=== PATIENT | female | born 1985 | race African-American/Black ===

== ENCOUNTER 2016-11-09 11:30 | Inpatient (IN) | payer MEDICAID ==
[~2016-11-09] VITALS: Ht 33 cm; Wt 0.5 kg
[2016-11-09] VITALS (14 sets, daily range): BP systolic 100–142; BP diastolic 60–82
[2016-11-09] MEDS ORDERED: LACTATED RINGER'S 2,000 ML IV ONE (12:00)
[2016-11-09 12:46] LABS: Albumin 2.6 g/dL (3.4-5.0); BUN/Creatinine Ratio 14.6; Bilirubin, Total 0.2 mg/dL (0.2-1.0); Calcium 8.3 mg/dL (8.5-10.1); Potassium 3.7 mmol/L (3.5-5.1); Total Protein 7.1 g/dL (6.4-8.2); Uric Acid 3.8 mg/dL (2.6-6.0)
[2016-11-09 12:50] LABS: Basophils # (auto) 0 uL; Basophils % (auto) 0.3 % (0.0-2.0); Eosinophils # (auto) 0.4 uL; Hematocrit 35.2 % (36.0-46.0); Hemoglobin 11.5 g/dL (12.2-16.2); Lymphocytes # (auto) 1.5 uL; Lymphocytes % (auto) 16.3 % (10.0-50.0); Mean Corpuscular Hemoglobin 28.9 pg (28.0-32.0); Mean Corpuscular Hgb Conc. 32.8 g/dL (32.0-36.0); Mean Corpuscular Volume 88.1 fL (80.0-100.0); Mean Platelet Volume 9.6 fL (7.4-10.4); Monocytes # (auto) 0.5 uL; Monocytes % (auto) 5.2 % (0.0-12.0); Neutrophils # (auto) 6.7 uL; Neutrophils % (auto) 74.2 % (37.0-80.0); Platelet Count (auto) 212 10^3/uL (140-450); Red Cell Distribution Width 14.4 % (11.6-16.0); White Blood Cell 9.1 10^3/uL (4.4-10.8)
[2016-11-09 12:55] LABS: INR 0.96 (0.9-1.15); Partial Thromboplastin Time 26.6 sec (22.64-33.71); Prothrombin Time 9.9 sec (9.37-12.3)
[2016-11-09 12:57] LABS: Urine Bilirubin Negative (Negative); Urine Color Yellow (Yellow); Urine Ketone Negative (Negative); Urine Nitrite Negative (Negative); Urine RBC 2 /hpf (0 - 4); Urine Squamous Epithelial Cell MANY /hpf (<5); Urine Urobilinogen Normal (Negative); Urine pH 6.5 (5.0-8.0)
[2016-11-09 12:58] LABS: Urine Blood 1+ /uL (Negative); Urine Glucose 2+ mg/dL (Normal)
[2016-11-09] MEDS ORDERED: fentaNYL CITRATE 100 MCG/2 ML VL ONE (13:08)
[2016-11-09] MEDS ORDERED: MORPHINE SULF INJ 2 MG/ML SYRINGE 1ML IV PRN (14:15)
[2016-11-09] MEDS ORDERED: ONDANSETRON HCL 4 MG/2 ML VIAL IV PRN (14:15)
[2016-11-09] MEDS ORDERED: hydrALAZINE HCL 20 MG/ML VL IV PRN (14:30)
[2016-11-09] MEDS ORDERED: ePHEDrine SULFATE 50 MG/ML AMP IV PRN (14:30)
[2016-11-09] MEDS ORDERED: HYDROmorphone HCL 2 MG/ML VL IV PRN ×2 (14:30→14:45)
[2016-11-09] MEDS ORDERED: ONDANSETRON HCL 4 MG/2 ML VIAL IV ONE (14:30)
[2016-11-09] MEDS ORDERED: LACT. RINGERS/OXYTOCIN 20UNITS 1,000 ML IV SCH (14:45)
[2016-11-09] MEDS ORDERED: OXYTOCIN 10UNIT/ML 1ML VIAL ONE (15:05)
[2016-11-09] MEDS: D5W/LACTATED RINGERS 1,000 ML IV SCH ×2 (16:45→22:30)
[2016-11-09] MEDS: KETOROLAC TROMETH 30 MG/ML 1ML VIAL IV PRN (18:47)
[2016-11-09 21:14] LABS: Basophils # (auto) 0.1 uL; Basophils % (auto) 0.5 % (0.0-2.0); Eosinophils # (auto) 0.2 uL; Eosinophils % (auto) 1.8 % (0.0-7.0); Hematocrit 35.8 % (36.0-46.0); Hemoglobin 11.7 g/dL (12.2-16.2); Lymphocytes # (auto) 1.7 uL; Lymphocytes % (auto) 14.2 % (10.0-50.0); Mean Corpuscular Hemoglobin 28.8 pg (28.0-32.0); Mean Corpuscular Hgb Conc. 32.7 g/dL (32.0-36.0); Mean Corpuscular Volume 88.2 fL (80.0-100.0); Monocytes # (auto) 0.5 uL; Monocytes % (auto) 4.2 % (0.0-12.0); Neutrophils # (auto) 9.3 uL; Neutrophils % (auto) 79.3 % (37.0-80.0); Platelet Count (auto) 218 10^3/uL (140-450); Red Cell Distribution Width 14.3 % (11.6-16.0); White Blood Cell 11.7 10^3/uL (4.4-10.8)
[2016-11-09] MEDS: ceFAZolin 1GM/50ML D5W 50 ML IV SCH (22:30)
[2016-11-10] VITALS (11 sets, daily range): BP systolic 103–138; BP diastolic 53–87
[2016-11-10] MEDS: ceFAZolin 1GM/50ML D5W 50 ML IV SCH ×2 (05:50→14:30)
[2016-11-10] MEDS: KETOROLAC TROMETH 30 MG/ML 1ML VIAL IV PRN (05:50)
[2016-11-10] MEDS: D5W/LACTATED RINGERS 1,000 ML IV SCH (05:50)
[2016-11-10 06:28] LABS: DEFINITIVE VIEW TRANSMISSION; Hematocrit 33.1 % (36.0-46.0); SUSPECT VIEW TRANSMISSION
[2016-11-10 06:50] LABS: Hemoglobin 11.4 g/dL (12.2-16.2); Mean Corpuscular Hemoglobin 30.4 pg (28.0-32.0); Mean Corpuscular Hgb Conc. 34.3 g/dL (32.0-36.0); Mean Corpuscular Volume 88.7 fL (80.0-100.0); Mean Platelet Volume 8.9 fL (7.4-10.4); Platelet Count (auto) 196 10^3/uL (140-450); Red Cell Distribution Width 13.5 % (11.6-16.0); White Blood Cell 11.6 10^3/uL (4.4-10.8)
[2016-11-10] MEDS ORDERED: BISACODYL 10 MG RECT SUPP PR PRN (07:00)
[2016-11-10 07:26] LABS: Metamyelocytes % 0; Myelocytes % 0; Promyelocytes % 0; Reactive Lymphocytes 0
[2016-11-10] MEDS: SIMETHICONE 80 MG CHEWABLE TABLET PO SCH ×4 (07:31→21:36)
[2016-11-10 09:01] LABS: Platelet Estimate Adequate; RBC Morphology Normal
[2016-11-10] MEDS: DOCUSATE SOD 100 MG CAP PO SCH ×2 (10:19→21:36)
[2016-11-10] MEDS: DOCUSATE CALCIUM 240 MG CAP PO SCH (10:19)
[2016-11-10] MEDS: IBUPROFEN 800 MG TAB PO PRN ×2 (10:25→21:36)
[2016-11-10] MEDS: HYDROcodone-ACET 10/325MG TAB PO PRN (11:27)
[2016-11-10] MEDS ORDERED: PREN-96 PO (17:30)
[2016-11-11 03:06] VITALS: BP 117/71
[2016-11-11] MEDS: IBUPROFEN 800 MG TAB PO PRN ×2 (06:03→21:59)
[2016-11-11] MEDS: SIMETHICONE 80 MG CHEWABLE TABLET PO SCH ×4 (06:20→21:59)
[2016-11-11 08:00] VITALS: BP 124/72
[2016-11-11] MEDS: DOCUSATE SOD 100 MG CAP PO SCH ×2 (10:06→21:59)
[2016-11-11] MEDS: DOCUSATE CALCIUM 240 MG CAP PO SCH (10:06)
[2016-11-11 12:00] VITALS: BP 112/70
[2016-11-11] MEDS: HYDROcodone-ACET 10/325MG TAB PO PRN (15:25)
[2016-11-11 16:00] VITALS: BP 110/63
[2016-11-11 20:10] VITALS: BP 114/60
[2016-11-11 23:30] VITALS: BP 104/56
[2016-11-12 03:20] VITALS: BP 124/63
[2016-11-12] MEDS: SIMETHICONE 80 MG CHEWABLE TABLET PO SCH (06:39)
[2016-11-12] MEDS ORDERED: MIDAZOLAM HCL 1MG/1ML-2 ML VIAL ONE (07:37)
[2016-11-12] MEDS ORDERED: fentaNYL CITRATE 100 MCG/2 ML VL ONE (07:37)
[2016-11-12] MEDS ORDERED: ceFAZolin 1GM VL ONE (07:37)
[2016-11-12] MEDS ORDERED: OXYTOCIN 10 UNIT/ML 10ML VIAL ONE (07:44)
[2016-11-12 08:00] VITALS: BP 110/62
[2016-11-12] MEDS: IBUPROFEN 800 MG TAB PO PRN (08:36)
[2016-11-12] MEDS ORDERED: TETANUS-DIPTH-ACEL PERTUSSIS 0.5ML SYRG IM ONE (08:45)
[2016-11-12 09:10] VITALS: BP 114/63
== END 2016-11-12 09:10 | disposition home or self-care (01) | DRG 540 ==
LOC: OBSVTOIN 11:30 → LDRP 11:30
PROVIDERS: ADMIT Obstetrics & Gynecology; ATTEND Obstetrics & Gynecology
PROC: 10D00Z1 Extraction of Products of Conception, Low, Open Approach (ICD-10-PCS; principal; 2016-11-09 13:22)
DX: O34.211 Maternal care for low transverse scar from previous cesarean delivery (principal); O99.324 Drug use complicating childbirth; O99.52 Diseases of the respiratory system complicating childbirth; J45.909 Unspecified asthma, uncomplicated; F12.90 Cannabis use, unspecified, uncomplicated; O77.0 Labor and delivery complicated by meconium in amniotic fluid; O69.81X0 Labor and delivery complicated by cord around neck, without compression, not applicable or unspecified; Z86.32 Personal history of gestational diabetes; Z82.49 Family history of ischemic heart disease and other diseases of the circulatory system; Z37.0 Single live birth; Z91.19 Patient's noncompliance with other medical treatment and regimen; O09.33 Supervision of pregnancy with insufficient antenatal care, third trimester; Z23 Encounter for immunization
CPT/HCPCS: 36415; 76818; 80053; 81001; 82948; 84550; 85007; 85025; 85027; 85610; 85730; 86850; 86900; 86901; 88307; 90715; 96372; 96374; G0378; G0434; J0690; J1885; J2250; J2590

== ENCOUNTER 2016-12-05 12:46 | Inpatient (IN) | payer MEDICAID ==
[~2016-12-05] VITALS: Ht 152.4 cm; Wt 90.0 kg
[~2016-12-05 12:46] MED LIST: PREN-96 PO
[2016-12-05] MEDS ORDERED: SODIUM CHLORIDE 0.9% 1,000 ML IVB ONE (13:28)
[2016-12-05 13:30] LABS: Basophils # (auto) 0 uL; Basophils % (auto) 0.5 % (0.0-2.0); Eosinophils # (auto) 0.7 uL; Eosinophils % (auto) 6.3 % (0.0-7.0); Hematocrit 39.8 % (36.0-46.0); Hemoglobin 12.6 g/dL (12.2-16.2); Lymphocytes # (auto) 2.3 uL; Lymphocytes % (auto) 21.6 % (10.0-50.0); Mean Corpuscular Hemoglobin 27.8 pg (28.0-32.0); Mean Corpuscular Hgb Conc. 31.8 g/dL (32.0-36.0); Mean Corpuscular Volume 87.3 fL (80.0-100.0); Monocytes # (auto) 0.5 uL; Monocytes % (auto) 4.5 % (0.0-12.0); Neutrophils # (auto) 7.2 uL; Neutrophils % (auto) 67.1 % (37.0-80.0); Platelet Count (auto) 320 10^3/uL (140-450); Red Cell Distribution Width 14.9 % (11.6-16.0); White Blood Cell 10.7 10^3/uL (4.4-10.8)
[2016-12-05] MEDS ORDERED: ONDANSETRON HCL 4 MG/2 ML VIAL IV ONE (13:30)
[2016-12-05 13:57] LABS: Albumin 3.6 g/dL (3.4-5.0); BUN/Creatinine Ratio 13.3; Bilirubin, Total 0.3 mg/dL (0.2-1.0); Calcium 8.4 mg/dL (8.5-10.1); Potassium 3.9 mmol/L (3.5-5.1); Total Protein 7.8 g/dL (6.4-8.2)
[2016-12-05 15:04] LABS: INR 1.01 (0.9-1.15); Partial Thromboplastin Time 26.8 sec (22.64-33.71); Prothrombin Time 10.4 sec (9.37-12.3)
[2016-12-05 15:19] LABS: Urine Bilirubin Negative (Negative); Urine Color Yellow (Yellow); Urine Glucose Normal (Normal); Urine Ketone Negative (Negative); Urine Nitrite Negative (Negative); Urine RBC 3 /hpf (0 - 4); Urine Squamous Epithelial Cell FEW /hpf (<5); Urine Urobilinogen Normal (Negative)
[2016-12-05 15:23] LABS: Urine Blood 1+ /uL (Negative)
[2016-12-05] MEDS ORDERED: LEVOFLOXACIN 500MG 100 ML IV ONE (15:30)
[2016-12-05] MEDS ORDERED: metroNIDAZOLE 500MG/100ML 100 ML IV ONE (15:30)
[2016-12-05] MEDS ORDERED: PIPERACILLIN-TAZOB 3.375GM 100 ML IV ONE (15:45)
[2016-12-05] MEDS ORDERED: PROMETHAZINE HCL 25 MG/ML 1ML IV PRN (16:00)
[2016-12-05] MEDS ORDERED: NITROGLYCERIN 0.4 MG SL TAB SL PRN (16:00)
[2016-12-05] MEDS ORDERED: MORPHINE SULF INJ 2 MG/ML SYRINGE 1ML IV PRN ×2 (16:00)
[2016-12-05] MEDS ORDERED: LORazepam 0.5 MG TAB PO PRN (16:00)
[2016-12-05] MEDS ORDERED: ACETAMINOPHEN 500 MG TAB PO PRN (16:00)
[2016-12-05] MEDS ORDERED: HYDROcodone-ACET 5/325MG TAB PO PRN (16:00)
[2016-12-05] MEDS ORDERED: TEMAZEPAM 15 MG CAP PO PRN (16:00)
[2016-12-05] MEDS: SODIUM CHLORIDE 0.9% 1,000 ML IV SCH ×2 (16:16→17:16)
[2016-12-05 16:47] LABS: Amylase 29 U/L (25-115)
[2016-12-05] MEDS: FAMOTIDINE 20 MG TAB PO SCH ×2 (17:28→21:52)
[2016-12-05] MEDS: metroNIDAZOLE 500MG/100ML 100 ML IV SCH ×2 (18:15→23:04)
[2016-12-05 21:30] VITALS: BP 111/73
[2016-12-05] MEDS: PIPERACILLIN-TAZOB 3.375GM 100 ML IV SCH (23:53)
[2016-12-06] MEDS: SODIUM CHLORIDE 0.9% 1,000 ML IV SCH ×2 (01:46→11:28)
[2016-12-06 05:00] VITALS: BP 107/62
[2016-12-06] MEDS: metroNIDAZOLE 500MG/100ML 100 ML IV SCH ×2 (05:07→11:55)
[2016-12-06] MEDS: PIPERACILLIN-TAZOB 3.375GM 100 ML IV SCH ×2 (06:18→12:00)
[2016-12-06 06:35] LABS: Basophils # (auto) 0 uL; Basophils % (auto) 0.3 % (0.0-2.0); Eosinophils # (auto) 0.6 uL; Eosinophils % (auto) 7.5 % (0.0-7.0); Hemoglobin 10.9 g/dL (12.2-16.2); Lymphocytes # (auto) 2.3 uL; Lymphocytes % (auto) 29.6 % (10.0-50.0); Mean Corpuscular Hemoglobin 28.1 pg (28.0-32.0); Mean Corpuscular Volume 87.7 fL (80.0-100.0); Mean Platelet Volume 8.9 fL (7.4-10.4); Monocytes # (auto) 0.5 uL; Monocytes % (auto) 5.9 % (0.0-12.0); Neutrophils # (auto) 4.3 uL; Neutrophils % (auto) 56.7 % (37.0-80.0); Platelet Count (auto) 248 10^3/uL (140-450); Red Cell Distribution Width 14.5 % (11.6-16.0); White Blood Cell 7.6 10^3/uL (4.4-10.8)
[2016-12-06 06:46] LABS: Potassium 3.6 mmol/L (3.5-5.1)
[2016-12-06 06:49] LABS: Albumin 2.8 g/dL (3.4-5.0); BUN/Creatinine Ratio 10.3; Calcium 7.8 mg/dL (8.5-10.1)
[2016-12-06 06:51] LABS: Bilirubin, Total 0.3 mg/dL (0.2-1.0); Total Protein 6.2 g/dL (6.4-8.2)
[2016-12-06 08:00] VITALS: BP 117/80
[2016-12-06 09:00] VITALS: BP_SYST 117; BP_SYST 148; BP_DIAS 77; BP_DIAS 80
[2016-12-06] MEDS: FAMOTIDINE 20 MG TAB PO SCH (09:59)
[2016-12-06 13:00] VITALS: BP 101/64
[2016-12-06 14:16] VITALS: BP 100/64
== END 2016-12-06 16:00 | disposition home or self-care (01) | DRG 249 ==
LOC: ER 12:51 → TELE 12:52 → TELE-CENTR 17:25
PROVIDERS: ADMIT Internal Medicine; ATTEND Internal Medicine
DX: A09 Infectious gastroenteritis and colitis, unspecified (principal); N39.0 Urinary tract infection, site not specified; E66.9 Obesity, unspecified; Z86.32 Personal history of gestational diabetes; Z82.49 Family history of ischemic heart disease and other diseases of the circulatory system; Z83.3 Family history of diabetes mellitus; Z68.38 Body mass index [BMI] 38.0-38.9, adult; Z98.890 Other specified postprocedural states
CPT/HCPCS: 36415; 71010; 74176; 76856; 80053; 81001; 82150; 83690; 83735; 85025; 85610; 85652; 85730; 86141; 87040; 87086; 94761; 96361; 96365; 96375; J1956; J2405; J2543; J3490

== ENCOUNTER 2018-08-07 11:40 | Emergency (ER) | payer MEDICAID ==
[~2018-08-07] VITALS: Ht 152.4 cm; Wt 97.2 kg
[2018-08-07 12:33] LABS: Basophils # (auto) 0.1 uL; Basophils % (auto) 0.7 % (0.0-2.0); Eosinophils # (auto) 0.1 uL; Eosinophils % (auto) 0.9 % (0.0-7.0); Hematocrit 41.1 % (36.0-46.0); Hemoglobin 13.9 g/dL (12.2-16.2); Lymphocytes # (auto) 2.2 uL; Lymphocytes % (auto) 14.7 % (10.0-50.0); Mean Corpuscular Hemoglobin 30.6 pg (28.0-32.0); Mean Corpuscular Hgb Conc. 33.9 g/dL (32.0-36.0); Mean Corpuscular Volume 90.4 fL (80.0-100.0); Monocytes # (auto) 0.9 uL; Monocytes % (auto) 5.9 % (0.0-12.0); Neutrophils # (auto) 11.7 uL; Neutrophils % (auto) 77.8 % (37.0-80.0); Platelet Count (auto) 325 10^3/uL (140-450); Red Blood Cells 4.55 10^6/uL (4.0-5.20); Red Cell Distribution Width 13.9 % (11.8-14.3)
[2018-08-07 12:42] LABS: Urine Pregnacy Test Positive (Negative)
[2018-08-07 12:47] LABS: Urine Bacteria NONE SEEN /hpf (None Seen); Urine Blood TRACE /uL (Negative); Urine Mucus MODERATE (None Seen); Urine Specific Gravity 1.041 (1.001-1.035); Urine WBC 8 /hpf (0 - 5)
[2018-08-07 12:56] LABS: Amphetamine Screen, Urine NEGATIVE (NEGATIVE); Barbiturate Scree,Urine NEGATIVE (NEGATIVE); Benzodiazephine Screen, Urine NEGATIVE (NEGATIVE); Cannabinoid Screen, Urine POSITIVE (NEGATIVE); Cocaine Screen, Urine POSITIVE (NEGATIVE); Opiate Scree,Urine NEGATIVE (NEGATIVE); Phencyclidine Screen, Urine NEGATIVE (NEGATIVE)
[2018-08-07 12:57] LABS: Albumin 3.7 g/dL (3.4-5.0); BUN/Creatinine Ratio 16.3; Bilirubin, Total 0.5 mg/dL (0.2-1.0); Calcium 8.8 mg/dL (8.5-10.1); Potassium 3.1 mmol/L (3.5-5.1); Total Protein 8.4 g/dL (6.4-8.2)
[2018-08-07] MEDS ORDERED: SODIUM CHLORIDE 0.9% 1,000 ML IVB ONE (14:19)
[2018-08-07] MEDS ORDERED: ONDANSETRON HCL 4 MG/2 ML VIAL IV ONE (14:30)
[2018-08-07 16:08] LABS: INR 0.91 (0.9-1.15); Partial Thromboplastin Time 27.8 sec (23.78-33.04); Prothrombin Time 9.8 sec (9.27-12.13)
[2018-08-07 17:00] VITALS: BP 146/115
[2018-08-07] MEDS ORDERED: POTASSIUM CHL 20 Meq TABLET PO ONE (18:15)
== END 2018-08-07 18:48 | disposition home or self-care (01) ==
LOC: ER 11:40
DX: O21.9 Vomiting of pregnancy, unspecified (principal); O26.891 Other specified pregnancy related conditions, first trimester; O99.331 Smoking (tobacco) complicating pregnancy, first trimester; F14.10 Cocaine abuse, uncomplicated; E87.6 Hypokalemia; Z72.89 Other problems related to lifestyle; Z3A.08 8 weeks gestation of pregnancy
CPT/HCPCS: 36415; 76801; 80053; 80307; 81001; 81025; 84702; 85025; 85610; 85730; 94761; 96361; 96374; 99285; J2405